=== PATIENT | female | born 1945 | race Caucasian/White ===

== ENCOUNTER → 2016-12-06 | Outpatient (CLI) | payer OTHER, BC ==
--- NOTE | 2016-12-06 17:28 | DX ---
Right rib series 4 views - December 06, 2016 History: Fall on ice 2 weeks ago with right-sided pain. Comparison: None available. Findings: There are nondisplaced anterolateral right eighth and ninth rib fractures. There is no pne umothorax. Heart size is normal. Mild degenerative change is present in the spine. Impression: Nondisplaced lateral right eighth and ninth rib fractures.
== END ==
LOC: CIMAGING 09:45
PROVIDERS: ATTEND Family Medicine
DX: S22.41XA Multiple fractures of ribs, right side, initial encounter for closed fracture (principal)
CPT/HCPCS: 71101-PO

== ENCOUNTER 2016-12-31 09:10 | Emergency (ER) | payer OTHER, BC ==
[2016-12-31 09:32] VITALS: RESP 16; TEMP 97.7
[2016-12-31] MEDS ORDERED: NS 1,000 ML IV ONE (09:38)
[2016-12-31] MEDS ORDERED: FAMOTIDINE 20 MG in NS 100 ML IV ONE (09:38)
[2016-12-31] MEDS ORDERED: HYDROmorphONE/DILAUDID 1 MG/ML SYR IVP ONE (09:38)
[2016-12-31] MEDS ORDERED: ONDANSETRON 4 MG/2 ML VIAL IVP ONE (09:38)
--- NOTE | 2016-12-31 09:44 | UCPHY ---
H & P Time Seen by Provider: 12/31/16 09:26 Patient Type: Established HPI/ROS: HPI Abdominal pain. 71-year-old female by private vehicle. This patient has a history of irritable bowel syndrome. She reports that she has had intermittent intense cramping in the right upper abdomen and right upper quadrant of her abdomen. She states that it is worse at night. She saw her primary care physician [place] 1 [place] ago regarding this pain and was given some antacids and sent home. She returns complaining of continued pain. She reports it is similar to her prior episodes of exacerbated irritable bowel syndrome but more intense. She denies any bloody or melenic stool. No diarrhea. Last bowel movement was yesterday. Last meal was this morning. ROS: Constitutional: No fever, no chills. No weakness. Eyes: No discharge. No changes in vision. ENT: No sore throat. No nasal congestion or rhinorrhea. Respiratory: No cough. No shortness of breath. Cardiac: No chest pain, no palpitations. Gastrointestinal: As above, no vomiting, no diarrhea. Genitourinary: No hematuria. No dysuria or increased frequency with urination. Musculoskeletal: No back pain. No neck pain. No myalgias or arthralgias. Skin: No rashes. Neurological: No headache. No focal weakness or altered sensation. Past medical history: Social history: Physical Exam: General Appearance: Alert, no distress. This patient is responding to questions appropriately and in full sentences. This patient appears well- hydrated and well-nourished. Eyes: Pupils equal and round no pallor or injection. No lid edema, erythema or injection. ENT, Mouth: Mucous membranes are moist. The pharyngeal tissues are unremarkable. No edema or swelling. No asymmetry suggestive of abscess. No erythema or exudates. Respiratory: There are no retractions, lungs are clear to auscultation with good air movement bilaterally. Cardiovascular: Regular rate and rhythm. No murmur. Gastrointestinal: Abdomen is soft and nontender, no masses, bowel sounds normal. No focal tenderness at McBurney's point. No Yanez sign. Neurological: Motor sensory function is grossly intact. Cranial nerves are normal. Gait is normal. Skin: Warm and dry, no rashes. Musculoskeletal: Neck is supple and nontender. Extremities are symmetrical. All joints range without pain or impingement. Psychiatric: No agitation. No depression. Database: EKG: Imaging: CT scan of abdomen and pelvis with IV contrast: Perhaps some mild thickening of the transverse colon. Otherwise negative study. Results were discussed with staff radiologist Dr. Soy Reynoso. Procedures: Emergency department course: IV placed. She was placed on a monitor. She will be given 0.5 mg of IV hydromorphone for pain and 4 mg of IV Zofran for nausea. She was started on IV normal saline with 1 L to be given over 1 hour. 10:45 a.m., patient re-evaluated. She is comfortable at this time. She is awaiting CT scan. 12:00 p.m., patient re-evaluated. Repeat abdominal exam she is soft, nontender nondistended. Results of her CT scan, blood work and urinalysis discussed with her. Diagnosis of probable irritable bowel syndrome exacerbation discussed. Her vital signs have been reviewed and are normal. I feel she is safe for discharge. She feels comfortable going home. Follow-up and return to emergency department precautions were reviewed with her. All of her questions were answered. She was discharged in good condition. Differential Diagnosis: The differential diagnosis on this patient includes but is not limited to colitis, irritable bowel syndrome exacerbation. Volvulus, obstructive process, cholecystitis, nephrolithiasis, pyelonephritis, appendicitis, other acute surgical process unlikely. This represents a partial list of diagnoses considered. These considerations are based on history, physical exam, past history, reassessment and diagnostic testing. Smoking Status: Former smoker Constitutional: Initial Vital Signs Temperature (C) 36.5 C 12/31/16 09:28 Heart Rate 82 12/31/16 09:28 Respiratory Rate 16 12/31/16 09:28 Blood Pressure 142/99 H 12/31/16 09:28 O2 Sat (%) 99 12/31/16 09:28 O2 Delivery Mode Room Air Allergies/Adverse Reactions: food allergies Allergy (Uncoded 12/31/16 09:32) Home Medications: Medication Instructions Recorded LEVSIN 12/31/16 Sleeping Pill 12/31/16 Zantac 12/31/16 Medical Decision Making - Data Points Laboratory Results: Laboratory Results 12/31/16 09:50 12/31/16 09:50 Medications Given: Discontinued Medications Hydromorphone HCl (Dilaudid) 0.5 mg IVP EDNOW ONE Stop: 12/31/16 09:39 Last Admin: 12/31/16 11:48 Dose: Not Given Sodium Chloride (Ns) 1,000 mls @ 0 mls/hr IV ONCE ONE PRN Reason: Wide Open Stop: 12/31/16 09:39 Last Admin: 12/31/16 11:30 Dose: 1,000 mls Famotidine 20 mg/ Sodium (Chloride) 102 mls @ 408 mls/hr IV EDNOW ONE Stop: 12/31/16 09:52 Last Admin: 12/31/16 11:35 Dose: 102 mls Ondansetron HCl (Zofran) 4 mg IVP EDNOW ONE Stop: 12/31/16 09:39 Last Admin: 12/31/16 11:30 Dose: 4 mg Departure - Departure Disposition: Home, Routine, Self-Care Clinical Impression: Abdominal pain, Irritable bowel syndrome (IBS) Condition: Good Instructions: Irritable Bowel Syndrome (ED), Abdominal Pain (ED) Additional Instructions: Read and follow provided instructions. Follow-up with your primary care physician in 2-3 days for re-evaluation as discussed. Discussed with your primary care physician a gastroenterology referral for for further evaluation and management. Ibuprofen dosin mg every 6 hours with meals for the next 3 days only. Return to the emergency department for worsening pain, fever, vomiting, blood in stool or other serious concerns. Referrals: Anjel Morataya DO [Primary Care Provider] - As per Instructions - PQRS PQRS Measurement: 134: Depression screening and followup, PRIME MD-PHQ2 (12 years and older) Over the last 2 weeks, how often have you been bothered by any of the following problems? 1. Feeling down, depressed, or hopeless? 2. Little interest or pleasure in doing things? Answered no to both questions. 130: Documentation of medications. Reviewed all patient medications, doses, route and frequency. 226: Do you smoke? No. 47: 65 and older: Advanced care planning. Patient designates surrogate decision maker as family. 51: 18 years old and older with diagnosis of COPD, spirometry performance. NA 52: 18 years old and older with COPD and symptoms of COPD or FEV1<60% predicted prescribed a B Agonist. NA
[2016-12-31] MEDS ORDERED: IOPAMIDOL (ISOVUE-300) 100 ML BTL IV ONE (10:09)
[2016-12-31 10:33] LABS: % IMMATURE GRANULYOCYTES 0.2 % (0.0-1.1); ABSOLUTE IMMATURE GRANULOCYTES 0.01 10^3/uL (0.00-0.10); ADD DIFF? NO; ADD MORPH? NO; ADD SCAN? NO; ATYPICAL LYMPHOCYTE FLAG 10 (0-99); FRAGMENT RBC FLAG 0 (0-99); HEMATOCRIT 39.1 % (38.0-47.0); LEFT SHIFT FLG 0 (0-99); LIPEMIA HEMOLYSIS FLAG 80 (0-99); MEAN CELL HEMOGLOBIN 33.2 pg (27.9-34.1); MEAN CELL HEMOGLOBIN CONCENTR. 33.2 g/dL (32.4-36.7); PLATELET CLUMPS FLAG 0 (0-99); PLATELET COUNT 222 10^3/uL (150-400); RED BLOOD CELL COUNT 3.91 10^6/uL (4.18-5.33); RED CELL DISTRIBUTION WIDTH 12.3 % (11.5-15.2)
[2016-12-31 10:36] LABS: COLOR YELLOW; LEUKOCYTE ESTERASE,URINE NEGATIVE (NEGATIVE); NITRITE,URINE NEGATIVE (NEGATIVE)
[2016-12-31 10:46] LABS: ALBUMIN 3.5 g/dL (3.5-5.0); BILIRUBIN,TOTAL 0.5 mg/dL (0.1-1.4); BILIRUBIN-CONJUGATED 0.2 mg/dL (0.0-0.5); BILIRUBIN-UNCONJUGATED 0.3 mg/dL (0.0-1.1); CALCIUM 9.2 mg/dL (8.5-10.4); POTASSIUM 4.7 mEq/L (3.5-5.2); TOTAL PROTEIN 6.5 g/dL (6.3-8.2)
[2016-12-31 11:29] LABS: RBC,URINE NONE SEEN /hpf (0-3); WBC,URINE 0-1 /hpf (0-3)
[2016-12-31 12:50] VITALS: BP 154/81; PULSE 74; O2SAT 99
== END 2016-12-31 12:45 | disposition home or self-care (01) ==
LOC: CED 09:10
DX: K58.9 Irritable bowel syndrome, unspecified (principal)
CPT/HCPCS: 74177; 96361; 96374; 96375; G0463; J1170; J2405; Q9967; 80048-PO; 80076-PO; 81003-PO; 81015-PO; 85025-PO